=== PATIENT | male | born 1990 | race American Indian/Alaskan Native ===

== ENCOUNTER 2016-08-12 02:59 | Emergency (ER) | payer SELFPAY ==
[2016-08-12 04:24] VITALS: BP 145/97
[2016-08-12] MEDS ORDERED: XYLOCAINE 1% MPF 5 mL INFILTRATI ONE (09:52)
[2016-08-12] MEDS ORDERED: NORCO 5/325 PO ONE (09:52)
[2016-08-12] MEDS ORDERED: BOOSTRIX IM ONE (09:52)
[2016-08-12] MEDS ORDERED: CLEOCIN PO ONE (09:53)
--- NOTE | 2016-08-12 10:11 | Emergency Department Report ---
ED General Adult HPI - General Chief complaint: Skin/Abscess/Foreign Body Stated complaint: BUMP ON INNER THIGH Time Seen by Provider: 08/12/16 09:48 Source: patient Mode of arrival: Ambulatory Limitations: No Limitations - History of Present Illness Initial comments: PT c/o abscess to R upper thigh. PT states he was seen at [facility] for this 3 weeks ago and had site drained. PT states he was given RX for antibiotics but he did not take them. PT states he noticed the bump on his thigh last night. PT reports pain and tenderness to area. MD Complaint: abscess Onset/Timin -: Gradual, days(s) Location: right, lower extremity Severity scale (0 -10): 10 Quality: sharp, constant Consistency: constant Improves with: none Worsens with: other (palpation ) Associated Symptoms: denies: fever/chills, nausea/vomiting, rash - Related Data Previous Rx's Medication Instructions Recorded Last Taken Type Acetaminophen/Codeine [Tylenol #3] 1 tab PO Q6H PRN #12 tab 08/12/16 Unknown Rx Clindamycin [Clindamycin CAP] 300 mg PO Q8H #30 cap 08/12/16 Unknown Rx Allergies Allergy/AdvReac Type Severity Reaction Status Date / Time No Known Allergies Allergy Unverified 08/12/16 04:24 ED Review of Systems ROS: Stated complaint: BUMP ON INNER THIGH Other details as noted in HPI Comment: All other systems reviewed and negative Constitutional: denies: chills, fever Gastrointestinal: denies: abdominal pain, nausea, vomiting Genitourinary: denies: testicular pain, testicular mass Musculoskeletal: as per HPI Skin: as per HPI ED Past Medical Hx - Past Medical History Previous Medical History?: No - Surgical History Past Surgical History?: No - Social History Smoking Status: Current Every Day Smoker Substance Use Type: Alcohol - Medications Home Medications: Home Medications Medication Instructions Recorded Confirmed Last Taken Type Acetaminophen/Codeine [Tylenol #3] 1 tab PO Q6H PRN #12 tab 08/12/16 Unknown Rx Clindamycin [Clindamycin CAP] 300 mg PO Q8H #30 cap 08/12/16 Unknown Rx ED Physical Exam - General Limitations: No Limitations General appearance: alert, in no apparent distress - Head Head exam: Present: atraumatic, normocephalic, normal inspection - Eye Eye exam: Present: normal appearance, PERRL. Absent: conjunctival injection - ENT ENT exam: Present: normal exam, normal external ear exam - Neck Neck exam: Present: normal inspection, full ROM - Respiratory Respiratory exam: Present: normal lung sounds bilaterally. Absent: respiratory distress - Cardiovascular Cardiovascular Exam: Present: regular rate, normal rhythm - GI/Abdominal GI/Abdominal exam: Present: soft. Absent: tenderness - Rectal Rectal exam: Present: deferred - Extremities Exam Extremities exam: Present: tenderness (to R proximal, medial thigh) - Back Exam Back exam: Present: normal inspection, full ROM - Neurological Exam Neurological exam: Present: alert, oriented X3 - Psychiatric Psychiatric exam: Present: normal affect, normal mood - Skin Skin exam: Present: warm, dry, intact, normal color, other (fluculant abscess to R thigh) ED Course Vital Signs 08/12/16 04:04 Temperature 99.2 F Pulse Rate 64 Respiratory 18 Rate Blood Pressure 145/97 O2 Sat by Pulse 100 Oximetry - Reevaluation(s) Reevaluation #1: 08/12/16 10:09 PT gives verbal consent for I and D. PT aware he will need to take his RX antibiotics. PT verbalizes understanding Reevaluation #2: 08/12/16 12:21 pt tolerated procedure well. pt given strict return precautions. pt verbalizes understanding - I & D Right Upper Medial Thigh Type of Procedure: Simple Site: R thigh Blade Size: 11 I & D Procedure: betadine prep, gauze wick placed (1/4 inch, iodoform) Progress: copious amount purulent drainage. site flushed with NS and loculations broken up with hemostats. - Pulse Oximetry Interpretation Digit-Finger Initial Pulse Oximetry Readin Actions Taken: none ED Medical Decision Making - Differential Diagnosis abscess, cellulitis Critical Care Time: No Critical care attestation.: If time is entered above; I have spent that time in minutes in the direct care of this critically ill patient, excluding procedure time. ED Disposition Clinical Impression: Abscess Disposition: DISCHARGED TO HOME OR SELFCARE Is pt being admited?: No Does the pt Need Aspirin: No Condition: Stable Instructions: Abscess (ED), Abscess Incision and Drainage (ED) Additional Instructions: Follow up with PCP in 3-5 days for bp recheck Return in 2 days for recheck of abscess and packing removal no driving or etoh after taking Tylenol #3 warm compresses/ baths at least 4 times a day Prescriptions: Acetaminophen/Codeine [Tylenol #3] 1 tab PO Q6H PRN #12 tab PRN Reason: Pain , Severe (7-10) Clindamycin [Clindamycin CAP] 300 mg PO Q8H #30 cap Referrals: PRIMARY CAREMD [Primary Care Provider] - 3-5 Days WILLIAMS MARSHALL MD [Staff Physician] - 3-5 Days [facility] [Outside] - 3-5 Days [facility]Note 3] [Outside] - 3-5 Days Forms: Work/School Release Form(ED), Accompanied Note Time of Disposition: 12:23
== END 2016-08-12 12:28 | disposition home or self-care (01) ==
LOC: ED 02:59
DX: L02.415 Cutaneous abscess of right lower limb (principal); F17.200 Nicotine dependence, unspecified, uncomplicated
CPT/HCPCS: 90471; 90715